=== PATIENT | male | born 1955 | race Caucasian/White ===

== ENCOUNTER → 2016-08-13 | Outpatient (CLI) | payer MEDICARE, OTHER ==
--- NOTE | 2016-08-13 09:43 | CT ---
EXAM DESCRIPTION: Chest CT. CLINICAL HISTORY: Shortness of breath. Cough COMPARISON: July 18, 2007 TECHNIQUE: A volumetric CT with IV contrast was acquired and displayed in multiplanar reconstructions. FINDINGS: Mediastinum: Coronary artery disease noted. Visualized lymph nodes are within normal limits for CT size criteria. No acute aortic abnormality, pericardial effusion, or mediastinal mass. Upper Abdomen: Probable fatty infiltration of the liver. Lungs: Pleural surfaces are unremarkable. There is no suspicious pulmonary nodularity, consolidation, or interstitial thickening. Bones: No suspicious bone lesion is seen. IMPRESSION: Today's exam demonstrates Coronary artery disease. The remaining study demonstrates no findings which could account for patient's shortness of Breath. Lungs are unremarkable. Electronically signed by: David Herrera MD 08/13/2016 09:42
== END | disposition home or self-care (01) ==
LOC: GMAB 09:06
PROVIDERS: ATTEND Family Medicine
DX: R06.02 Shortness of breath (principal); D50.9 Iron deficiency anemia, unspecified; E53.8 Deficiency of other specified B group vitamins; M79.1 Myalgia; R53.82 Chronic fatigue, unspecified; R73.01 Impaired fasting glucose; R05 Cough; E29.9 Testicular dysfunction, unspecified

== ENCOUNTER → 2017-08-11 | Outpatient (CLI) | payer MEDICARE, OTHER | LOC: GMAB 14:26 | PROVIDERS: ATTEND Family Medicine | DX: I10 Essential (primary) hypertension (principal); E29.9 Testicular dysfunction, unspecified; Z12.5 Encounter for screening for malignant neoplasm of prostate | CPT/HCPCS: 84403; 84443; G0103 ==

== ENCOUNTER → 2019-01-01 | Outpatient (CLI) | payer MEDICARE, OTHER | LOC: GMAE 12:21 | PROVIDERS: ATTEND Family Medicine | DX: I10 Essential (primary) hypertension (principal); E78.2 Mixed hyperlipidemia; Z12.5 Encounter for screening for malignant neoplasm of prostate | CPT/HCPCS: 84443; G0103 ==

== ENCOUNTER → 2019-04-11 | Outpatient (CLI) | payer MEDICARE, OTHER | LOC: GMAE 10:57 | PROVIDERS: ATTEND Family Medicine | DX: I10 Essential (primary) hypertension (principal); E78.2 Mixed hyperlipidemia ==

== ENCOUNTER → 2020-01-08 | Outpatient (CLI) | payer MEDICARE, OTHER | LOC: GMAE 11:11 | PROVIDERS: ATTEND Family Medicine | DX: Z12.5 Encounter for screening for malignant neoplasm of prostate (principal); I10 Essential (primary) hypertension; E78.2 Mixed hyperlipidemia | CPT/HCPCS: 84443; G0103 ==